=== PATIENT | female | born 1990 | race Caucasian/White ===

== ENCOUNTER 2020-01-28 13:59 | Emergency (ER) | payer BC, SELFPAY ==
[2020-01-28 14:01] VITALS: BP 140/93; PULSE 106; RESP 16; TEMP 36.3; O2SAT 98; BMI 32.4
--- NOTE | 2020-01-28 14:26 | RAD_ITS ---
STUDY: X-RAY - ABDOMEN/PELVIS REASON FOR EXAM: Female, 29 years old. CONSTIPATION X 5 DAYS, RECENT EGG EXTRACTION FROM LEFT OVARY TECHNIQUE: Single AP view of the abdomen / pelvis. COMPARISON: None. FINDINGS: Normal visualized lung bases. There is an abundance of fecal material throughout the colon. The visualized liver, spleen and kidneys are grossly normal in size and morphology. There are calcified phleboliths in the pelvis. Normal visualized osseous structures. RAD/Abdomen Single View IMPRESSION: Large amount of fecal material is seen in the colon. Calcified phleboliths are seen within the pelvis. Electronically Signed: Maxwell Martinez, at 14:48 EDT , Service support ,
--- NOTE | 2020-01-28 14:28 | ED.VIS.GEN ---
History of Present Illness Chief Complaint: Constipation Informant: Patient Narrative: Patient is a 29-year-old female who presents to the emergency department for constipation. She states that this past she had an egg retrieval for in vitro fertilization. Since then she has been having a lot of difficulty having bowel movements. She states she is got a very small amount out. She has tried many different things including laxatives, suppositories, enemas. She has been slightly nauseous but no episodes of vomiting. She denies any fevers or chills. She has had some left-sided abdominal discomfort. She denies any history of issues with constipation before in the past. She has not been on any pain medications. Prior to the constipation she denies any blood in the stool or black tarry stools. She does not know of a family history of colon cancer. No significant weight changes. She has had 2 previous abdominal surgeries, one for an ectopic 7 years ago and another for a section. Past Medical History - Allergies and Home Meds Allergies/Adverse Reactions: Allergies amoxicillin trihydrate [From Augmentin] Allergy (Verified 01/28/20 14:00) Hives erythromycin base [Erythromycin Base] Allergy (Verified 01/28/20 14:00) Hives Penicillins [PCN] Allergy (Verified 01/28/20 14:00) Hives potassium clavulanate [From Augmentin] Allergy (Verified 01/28/20 14:00) Hives Primary Care Physician: Care Physician,No Primary [Primary Care Provider] - 2 Days Smoking Status: Never smoker Review of Systems All systems negative except as indicated General: Denies: Chills, Fever, Sweats ENT: Denies: Rhinorrhea Cardiovascular: Denies: Chest pain, Palpitations Respiratory: Denies: Dyspnea, Cough, Dyspnea on exertion Gastrointestinal: Reports: Nausea, Constipation. Denies: Abdominal pain, Vomiting, Diarrhea, Melena, Hematochezia Genitourinary: Denies: Dysuria, Hematuria, Frequency Musculoskeletal: Denies: Back pain, Extremity Pain Skin: Denies: Rash, Wounds Neurological: Denies: Headache, Weakness, Numbness Physical Exam Vital Signs/Narrative: Vital Signs Temp Pulse Resp BP Pulse Ox 01/28/20 14:01 97.3 F L 106 H 16 140/93 H 98 Inital Vital Signs reviewed: Yes General: Well nourished, Well developed, No Acute Distress Head: Normocephalic, Atraumatic Eyes: Perrl, EOMI ENT: Moist mucous membranes, No rhinorrhea Neck: Supple, Nontender Cardiovascular: Regular rate, Regular rhythm, No murmurs Respiratory: No distress, CTA bilaterally, Chest nontender Abdomen: Soft, Nontender, Nondistended, Normal bowel sounds, Tender - Mild to deep palpation of left lower quadrant Back: Nontender, Normal Inspection. Negative for: CVA tenderness Extremities: Nontender, No edema Skin: Normal color, No rash Neurological: Alert, Oriented x3, Normal Strength, Normal Sensation Psychological: Normal affect, Normal Mood Diagnostic/Tx/Re-eval - Medical Decision Making Patient presents to the emergency department for constipation. Upon arrival to the emergency department she is in no acute distress. Resting comfortably in bed. She does have mild abdominal pain to deep palpation on the left side. Will obtain an x-ray to evaluate for any obstructive pattern. She has tried many outpatient therapies. X-ray did not show any evidence of obstruction. There is large amount of fecal material present. I did offer to do an enema/disimpaction here but she would prefer to try magnesium citrate at home. We will give a dose. She can take MiraLAX 4 hours after the initial dose of magnesium citrate. She can continue to take the MiraLAX every 1-2 hours after that until she has a bowel movement. If this does not work she can return to the emergency department for further evaluation and work-up including imaging/lab work-up. She was given return precautions including any severe abdominal pain or develop any systemic symptoms including any fever/chills. If she has any vomiting she is to also return. She understands and is agreeable with this plan. ED Disposition - Plan for ED Patient: Disposition: Home or Assisted Living Diagnosis: Constipation Instructions: ED Constipation Prescriptions: Magnesium Citrate [Citrate Of Magnesia] 300 ml PO X1 #1 bottle Transmission Status: Received by LARA JACKSON RD Polyethylene Glycol 3350 [Miralax] 17 gm PO Q2H PRN PRN #[email or web address] PRN Reason: Constipation Transmission Status: Received by LARA JACKSON RD Referrals: Care Physician,No Primary [Primary Care Provider] - 2 Days Additional Instructions: Do not take the MiraLAX until 4 hours post magnesium citrate.
== END 2020-01-28 16:00 | disposition home or self-care (01) ==
PROVIDERS: Emergency Provider Emergency Medicine
DX: K59.00 Constipation, unspecified (principal); Z88.0 Allergy status to penicillin; Z88.1 Allergy status to other antibiotic agents
CPT/HCPCS: 74018; 99281; 99282

== ENCOUNTER 2020-01-29 11:13 | Emergency (ER) | payer BC, SELFPAY ==
[2020-01-28 14:01] VITALS: BMI 32.4
[2020-01-29 11:15] VITALS: BP 150/94; PULSE 94; RESP 16; TEMP 36.1; O2SAT 96; BMI 32.4
--- NOTE | 2020-01-29 11:37 | CT_ITS ---
STUDY: CT ABDOMEN AND PELVIS WITH CONTRAST REASON FOR EXAM: Female, 29 years old. CONSTIPATION X 7 DAYS, NAUSEA, ABD PAIN LEFT SIDE. RADIATION DOSAGE (If Supplied By Facility): CTDIvol = ( 12.2 ) mGy, DLP = ( 905.59 ) mGycm TECHNIQUE: Transaxial images were obtained from the dome of the diaphragm to the symphysis pubis with oral contrast. Oral and amp; IV Gastrografin and amp; 100mL Isovue-300 was administered. Sagittal and coronal images were reconstructed. Individualized dose optimization techniques were used for this CT. COMPARISON: None. FINDINGS: The visualized lung bases are unremarkable. The visualized portions of the heart are within normal limits. Small amount of perihepatic and perisplenic fluid. Small amount of fluid is seen in the left Colon gutter. Normal liver. Normal gallbladder and extrahepatic biliary system. Normal spleen. Normal pancreas. Normal bilateral adrenal glands. Normal right kidney. Normal left kidney. There is a small hiatal hernia. Normal small intestine. Normal colon. The appendix is visualized and appears normal. Normal abdominal aorta. Normal inferior vena cava. There is borderline retroperitoneal lymphadenopathy with enlarged nodes no greater than 10mm in the short axis diameter. Normal urinary bladder. There is a 7.4 cm x 14 cm x 8.9 cm multiloculated cystic mass in the lower mid abdomen extending into the pelvis more prominent on the left side. A small amount of free fluid is seen in the cul-de-sac. A neoplastic ovarian process should be ruled out. The endometrium measures 1.6 cm. Normal abdominal wall. Normal osseous structures. CT/Abdomen/Pelvis WITH Contrast IMPRESSION: Small amount of ascitic fluid. 7.4 cm x 14 cm x 8.9 cm multiloculated cystic mass in the lower abdomen extending into the left side of the pelvis as described. An ovarian neoplastic process should be ruled out. Electronically Signed: Maxwell Martinez, at 13:44 EDT , Service support ,
--- NOTE | 2020-01-29 11:38 | ED.VIS.GEN ---
History of Present Illness Chief Complaint: Constipation Informant: Patient Narrative: 29-year-old female presents with constipation for the last 7 days. She states that she has tried enemas and laxatives and nothing has worked. She was seen and evaluated yesterday for similar constipation. She states that she does not feel like she is impacted in the rectum. She has been able to put in enemas without difficulty. She was discharged home with magnesium citrate to take several doses of this as well as MiraLAX. She said she had a small amount of liquid past but no other stool. She has abdominal pain on the left lower and upper quadrant. She states she started to get nauseous. She has history of ruptured u ectopic cyst with surgery as well as hysterectomy. She was told she has adhesions. Past Medical History - Allergies and Home Meds Allergies/Adverse Reactions: Allergies amoxicillin trihydrate [From Augmentin] Allergy (Verified 01/29/20 11:13) Hives erythromycin base [Erythromycin Base] Allergy (Verified 01/29/20 11:13) Hives Penicillins [PCN] Allergy (Verified 01/29/20 11:13) Hives potassium clavulanate [From Augmentin] Allergy (Verified 01/29/20 11:13) Hives Primary Care Physician: Care Physician,No Primary [Primary Care Provider] - Prior records reviewed: Yes Smoking Status: Never smoker Alcohol: None Drugs: None Review of Systems General: Denies: Chills, Fever, Sweats Eyes: Denies: Visual changes - bilaterally, Diplopia ENT: Denies: Rhinorrhea, Sore throat Cardiovascular: Denies: Chest pain, Palpitations Respiratory: Denies: Dyspnea, Cough, Dyspnea on exertion Gastrointestinal: Reports: Abdominal pain, Nausea, Constipation. Denies: Vomiting, Diarrhea, Melena, Hematochezia Genitourinary: Denies: Dysuria, Hematuria, Frequency Musculoskeletal: Denies: Back pain, Extremity Pain Skin: Denies: Rash, Wounds Neurological: Denies: Headache, Weakness, Numbness Physical Exam Vital Signs/Narrative: Vital Signs Temp Pulse Resp BP Pulse Ox 01/29/20 11:15 97 F L 94 16 150/94 H 96 General: Well nourished, Well developed, No Acute Distress Head: Normocephalic, Atraumatic Eyes: Perrl, EOMI ENT: Moist mucous membranes Neck: Supple, Nontender Cardiovascular: Regular rate, Regular rhythm Respiratory: No distress, CTA bilaterally Abdomen: Soft, Tender - Tenderness to palpation left upper and lower quadrants. Non-peritoneal. No CVA tenderness. Back: Nontender, Normal Inspection Extremities: Nontender, No edema Skin: Normal color, No rash Neurological: Alert, Oriented x3 Psychological: Normal affect, Normal Mood Diagnostic/Tx/Re-eval Clinical Impression(s) from Imaging Studies Abdomen/Pelvis CT 01/29/20 11:37 IMPRESSION: Small amount of ascitic fluid. 7.4 cm x 14 cm x 8.9 cm multiloculated cystic mass in the lower abdomen extending into the left side of the pelvis as described. An ovarian neoplastic process should be ruled out. Electronically Signed: Maxwell Michelle, at 13:44 EDT , Service support , Laboratory Data 01/29/20 01/29/20 01/29/20 11:55 11:55 12:10 WBC 12.2 H RBC 4.21 Hgb 13.4 Hct 38.6 MCV 91.7 MCH 31.8 MCHC 34.7 RDW Std Deviation 39.5 RDW Coeff of Thai 11.9 Plt Count 326 MPV 9.0 Immature Gran % (Auto) 0.300 Neut % (Auto) 76.2 H Lymph % (Auto) 17.2 L [place] % (Auto) 5.9 Eos % (Auto) 0.1 Baso % (Auto) 0.3 Absolute Neuts (auto) 9.3 H Absolute Lymphs (auto) 2.10 Nucleated RBC % 0 Sodium 136 Potassium 3.5 Chloride 103 Carbon Dioxide 28.0 Anion Gap 5 BUN 6 L Creatinine 0.72 Estim Creat Clear Calc 102.81 Est GFR (MDRD) Af Amer 121 Est GFR (MDRD) Non-Af 100 BUN/Creatinine Ratio 8.3 L Glucose 80 Calcium 9.2 Total Bilirubin 0.90 AST 19 ALT 37 Alkaline Phosphatase 54 Total Protein 8.1 Albumin 3.9 Globulin 4.2 Albumin/Globulin Ratio 0.9 Urine Color Yellow Urine Clarity Clear Urine pH 7.0 Ur Specific [place] 1.005 Urine Protein Negative Urine Glucose (UA) Normal Urine Ketones Negative Urine Occult Blood 150 H Urine Nitrite Negative Urine Bilirubin Negative Urine Urobilinogen Normal Ur Leukocyte Esterase Negative Urine RBC 0 SEEN Urine WBC 0 SEEN Ur Squamous Epith Cells 0-5 SEEN Urine Bacteria 1+ Urine Mucus 0 SEEN - Medical Decision Making Was seen and evaluated on arrival for constipation. She states this is been new since her recent harvesting of eggs. She did have lab work and a CT done because she has had abdominal surgeries and states he has a history of adhesions. CT of the abdomen pelvis does not show a bowel obstruction. I did have concern that the possible cystic mass could be causing obstruction. I spoke with the on-call fertility center who reviewed her case and stated that this was about the size it was on ultrasound. This was a normal finding given that she was given medication for this. She also states that she has patients all the time with 2 ovaries that have the same size that he had never see obstruction. She also notes that in there records she was told to follow-up with GI for her constipation but this is not been done. Patient was given a copy of her CD. Her physician is supposed to follow-up with her tomorrow regarding the need for further ultrasound. He was amenable to this plan. Impression 1. Ovarian follicles 2. Constipation ED Disposition - Plan for ED Patient: Disposition: Home or Assisted Living Diagnosis: Ovarian cyst Instructions: ED Constipation Referrals: Care Physician,No Primary [Primary Care Provider] -
[2020-01-29 12:09] LABS: Absolute Neutrophil Count 9.3 X10^3/uL (2.0-7.7); Basophil# 0.04 X10^3/uL; Basophil% 0.3 % (0-1); Eosinophil# 0.01 X10^3/uL; Eosinophils% 0.1 % (0-5); Hematocrit 38.6 % (37-47); Hemoglobin 13.4 g/dL (12.0-15.0); Lymphocyte % 17.2 % (19-41); Mean Corp Hgb Conc 34.7 g/dL (32-36); Mean Corpuscular Hgb 31.8 pg (27.0-32.0); Mean Corpuscular Volume 91.7 fL (81-99); Monocyte# 0.72 X10^3/uL; Monocyte% 5.9 % (0-10); NRBC Flagged by Analyzer 0 % (0-5); Neutrophil # 9.33 X10^3/uL (2.7-7.7); Neutrophil % 76.2 % (47-70); Platelet Count 326 K/mm3 (150-450); RBC Distribution Width CV 11.9 % (11.6-14.6); RBC Distribution Width SD 39.5 fl (35.1-43.9); Red Blood Count 4.21 M/mm3 (4.2-5.4); White Blood Count 12.2 K/mm3 (4.4-11.0)
[2020-01-29 12:16] LABS: Mucous, Urine 0 SEEN /hpf (<or=2+); Red Blood Cells-Urine 0 SEEN /hpf (0-5); White Blood Cells 0 SEEN /hpf (0-5)
[2020-01-29 12:18] LABS: Color, Urine Yellow (Yellow); Glucose, Dipstick Normal (Normal); Ketone-Dipstick Negative (Negative); Leukocyte Esterase-Dipstick Negative /ul (Negative); Nitrite-Dipstick Negative (Negative); Occult Blood-Urine 150 /ul (Negative); Protein-Dipstick Negative (Negative); Specific Gravity, Urine 1.005 (1.002-1.030); Urine Bilirubin Dipstick Negative (Negative); Urine Clarity Clear (Clear); Urine Urobilinogen Normal (Normal)
[2020-01-29 12:19] LABS: ALB/GLOB Ratio 0.9 RATIO (0.9-2.4); AST(SGOT) 19 U/L (15-37); Alanine Aminotransfer ALT/SGPT 37 U/L (13-56); Albumin, Serum 3.9 g/dL (3.2-5.0); Alkaline Phosphatase 54 U/L (45-117); Anion Gap 5 (5-15); BUN 6 mg/dL (7-18); BUN/Creat Ratio 8.3 RATIO (10-20); Calcium,Total 9.2 mg/dL (8.5-10.1); Chloride 103 mmol/L (98-107); Creatinine, Serum 0.72 mg/dL (0.55-1.02); EST Glomerular Filtration Rate 100 mL/min (>60); Est Glom Filt Rate - Afr Amer 121 mL/min (>60); Estimated Creatinine Clearance 102.81 ml/min; Globulin 4.2 g/dL (2.2-4.2); Glucose 80 mg/dL (74-106); Potassium 3.5 mmol/L (3.5-5.1); Protein, Total 8.1 g/dL (6.4-8.2); Sodium Level 136 mmol/L (136-145)
[2020-01-29 12:27] LABS: Squamous Epithelial Cells - UA 0-5 SEEN /hpf (5-10)
[2020-01-29 12:29] LABS: Bacteria 1+ /hpf (None Seen)
[2020-01-29] MEDS: 0.9% Normal Saline 1,000 ML 1000 ML IV (12:35)
[2020-01-29 15:41] VITALS: BP 113/73; PULSE 76; RESP 14; O2SAT 98
[2020-01-29 17:09] VITALS: BP 128/88; PULSE 74; RESP 14; O2SAT 100
== END 2020-01-29 17:10 | disposition home or self-care (01) ==
PROVIDERS: Emergency Provider Student in an Organized Health Care Education/Training Program
DX: N83.209 Unspecified ovarian cyst, unspecified side (principal); K59.00 Constipation, unspecified; Z88.0 Allergy status to penicillin; Z88.1 Allergy status to other antibiotic agents
CPT/HCPCS: 74177; 80053; 81001; 85025; 99283; J7030; Q9967; A4216